=== PATIENT | male | born 1990 | race Two or more races ===

== ENCOUNTER 2024-11-29 10:29 | Emergency (ER) | payer SELFPAY ==
[~2024-11-29] VITALS: Ht 180.3 cm; Wt 80.7 kg
[2024-11-29 10:50] VITALS: BP 122/74; TEMP 98.7
[2024-11-29] MEDS ORDERED: AMOX1TAB16 PO (11:04)
[2024-11-29 11:13] VITALS: O2SAT 98
== END 2024-11-29 11:19 | disposition home or self-care (01) ==
LOC: ER 10:41
DX: J02.9 Acute pharyngitis, unspecified (principal); R50.9 Fever, unspecified
CPT/HCPCS: 86403-TC; 87070-TC